=== PATIENT | female | born 1985 | race American Indian/Alaskan Native ===

== ENCOUNTER 2021-01-07 13:41 | Emergency (ER) | payer SELFPAY ==
[2021-01-07] MEDS ORDERED: ONDANSETRON 4 MG/2 ML INJ IV ONE (14:32)
[2021-01-07] MEDS ORDERED: SODIUM CHLORIDE 0.9% 1000 ML 1,000 ML IV ONE ×2 (14:32→16:56)
[2021-01-07] MEDS ORDERED: FAMOTIDINE 20 MG/2 ML INJ IV ONE (14:32)
--- NOTE | 2021-01-07 14:49 | Emergency Department Report ---
ED General Adult HPI - General Chief complaint: Nausea/Vomiting/Diarrhea Stated complaint: VOMITING Time Seen by Provider: 01/07/21 13:54 Source: patient Mode of arrival: Ambulatory Limitations: No Limitations - History of Present Illness Initial comments: 35-year-old -[place] female patient presents with complaints of nausea, vomiting, and cough x2 days. She also reports some body aches and chills without fever. No chest pain per patient or hematemesis/coffee-ground emesis, diarrhea, melena, or hematochezia. She reports she vomits only with food intake. No history of abdominal surgeries per patient or loss of taste or smell. She has not received the COVID-19 vaccine or recently been tested. Past medical history includes hypertension - Related Data Previous Rx's Medication Instructions Recorded Last Taken Type Famotidine [Pepcid] 20 mg PO BID 5 Days #10 tablet 01/07/21 Unknown Rx Ondansetron [Zofran Odt] 4 mg PO Q8HR PRN #15 tab.rapdis 01/07/21 Unknown Rx Allergies Allergy/AdvReac Type Severity Reaction Status Date / Time No Known Allergies Allergy Verified 01/07/21 13:48 ED Review of Systems ROS: Stated complaint: VOMITING Other details as noted in HPI Constitutional: chills, malaise, weakness. denies: diaphoresis, fever ENT: denies: throat pain Respiratory: cough. denies: shortness of breath Cardiovascular: denies: chest pain Gastrointestinal: nausea, vomiting. denies: abdominal pain, diarrhea, constipation, hematemesis, melena, hematochezia Genitourinary: denies: urgency, frequency, hematuria Skin: denies: rash, lesions, change in color Neurological: denies: headache Hematological/Lymphatic: denies: swollen glands ED Past Medical Hx - Surgical History Additional Surgical History: tubal ligation - Social History Smoking Status: Current Some Day Smoker Substance Use Type: None - Medications Home Medications: Home Medications Medication Instructions Recorded Confirmed Last Taken Type Famotidine [Pepcid] 20 mg PO BID 5 Days #10 tablet 01/07/21 Unknown Rx Ondansetron [Zofran Odt] 4 mg PO Q8HR PRN #15 tab.rapdis 01/07/21 Unknown Rx ED Physical Exam - General Limitations: No Limitations General appearance: alert, in no apparent distress - Head Head exam: Present: atraumatic, normocephalic - Eye Eye exam: Present: normal appearance. Absent: scleral icterus - Neck Neck exam: Present: normal inspection - Respiratory Respiratory exam: Present: normal lung sounds bilaterally. Absent: respiratory distress - Cardiovascular Cardiovascular Exam: Present: regular rate, normal rhythm - GI/Abdominal GI/Abdominal exam: Present: soft, normal bowel sounds. Absent: distended, tenderness, guarding, rebound, rigid - Neurological Exam Neurological exam: Present: alert, oriented X3 - Psychiatric Psychiatric exam: Present: normal affect, normal mood - Skin Skin exam: Present: warm, dry, intact, normal color. Absent: rash ED Course Vital Signs 01/07/21 01/07/21 01/07/21 13:48 13:54 15:03 Temperature 99.4 F 98.0 F 98.0 F Pulse Rate 85 77 81 Respiratory 18 14 14 Rate Blood Pressure 121/74 Blood Pressure 154/106 131/75 [Right] O2 Sat by Pulse 96 99 98 Oximetry ED Medical Decision Making - Lab Data Result diagrams: 01/07/21 14:54 01/07/21 14:54 - Radiology Data Radiology results: report reviewed CHEST 2 VIEWS INDICATION / CLINICAL INFORMATION: Cough. COMPARISON: None available. FINDINGS: SUPPORT DEVICES: None. HEART / MEDIASTINUM: No significant abnormality. LUNGS / PLEURA: No significant pulmonary or pleural abnormality. No pneumothorax. ADDITIONAL FINDINGS: No significant additional findings. IMPRESSION: 1. No acute findings. - Medical Decision Making 35-year-old -[place] female patient presents with complaints of nausea, vomiting, and cough x2 days. She also reports some body aches and chills without fever. No chest pain per patient or hematemesis/coffee-ground emesis, diarrhea, melena, or hematochezia. She reports she vomits only with food intake. No history of abdominal surgeries per patient or loss of taste or s latrell. She has not received the COVID-19 vaccine or recently been tested. Past medical history includes hypertension White count elevated at 14. No TTP of the abdomen on exam. Anion gap noted to be 27 on CMP. Patient given 2 L of normal saline. Chest x-ray is normal. Patient is tolerating juice and water p.o. without any vomiting observed here in the ED. Her vitals remain within normal limits and she is well-appearing. Patient is stable for discharge home. Recommend patient receives outpatient COVID-19 testing. Symptomatic treatment for home recommended along with vitamin C and zinc. Discussed in great detail with patient signs and symptoms that should prompt immediate return to the ED, she verbalizes understanding. Critical care attestation.: If time is entered above; I have spent that time in minutes in the direct care of this critically ill patient, excluding procedure time. ED Disposition Clinical Impression: Nausea & vomiting, Cough Disposition: HOME / SELF CARE / HOMELESS Is pt being admited?: No Condition: Stable Instructions: Cough, Adult, [id number], Nausea and Vomiting, Adult, Prevent the Spread of COVID-19 if You Are Sick - CDC, COVID-19 Prescriptions: Famotidine [Pepcid] 20 mg PO BID 5 Days #10 tablet Ondansetron [Zofran Odt] 4 mg PO Q8HR PRN #15 tab.rapdis PRN Reason: Nausea Referrals: [facility] [Provider Group] - 3-5 Days Forms: Work/School Release Form(ED)
[2021-01-07 15:00] LABS: Bilirubin,Urine SM (Negative); Blood,Urine NEG (Negative); Color,Urine Yellow (Yellow); Mucus,Urine 3+ /HPF
[2021-01-07 15:04] LABS: Ictotest,Urine Negative (Negative)
[2021-01-07 15:05] VITALS: BP 131/75
[2021-01-07 15:08] LABS: Basophils # (Auto) 0.1 K/mm3 (0.0-0.1); Basophils % (Auto) 0.8 % (0.0-1.8); Eosinophils % (Auto) 0.1 % (0.0-4.3); Hematocrit 41.9 % (30.3-42.9); Hemoglobin 13.8 gm/dl (10.1-14.3); Lymphocytes # (Auto) 1.6 K/mm3 (1.2-5.4); Lymphocytes % (Auto) 10.6 % (13.4-35.0); Mean Corpuscular HGB Conc 33 % (30-34); Mean Corpuscular Volume 107 fl (79-97); Monocytes # (Auto) 0.7 K/mm3 (0.0-0.8); Platelet Count 297 K/mm3 (140-440); Red Blood Count 3.92 M/mm3 (3.65-5.03); Red Cell Distribution Width 13.7 % (13.2-15.2)
[2021-01-07 15:31] LABS: Alanine Aminotransferase 61 units/L (7-56); Albumin 4.9 g/dL (3.9-5); Blood Urea Nitrogen 9 mg/dL (7-17); Hemolysis Index 60
[2021-01-07 15:43] LABS: BUN/Creatinine Ratio 13
--- NOTE | 2021-01-07 16:10 | XRay Report ---
CHEST 2 VIEWS INDICATION / CLINICAL INFORMATION: Cough. COMPARISON: None available. FINDINGS: SUPPORT DEVICES: None. HEART / MEDIASTINUM: No significant abnormality. LUNGS / PLEURA: No significant pulmonary or pleural abnormality. No pneumothorax. ADDITIONAL FINDINGS: No significant additional findings. IMPRESSION: 1. No acute findings. Signer Name: Kai Tabor MD Signed: 01/07/2021 4:05 PM Workstation Name: [id number]
== END 2021-01-07 18:00 | disposition home or self-care (01) ==
LOC: ED 13:41
DX: R11.2 Nausea with vomiting, unspecified (principal); R05.9 Cough, unspecified; F17.200 Nicotine dependence, unspecified, uncomplicated
CPT/HCPCS: 36415; 71046; 80053; 81001; 83690; 84703; 85025; 96361; 96374; 96375; 99284; J2405; J7030

== ENCOUNTER 2021-01-08 10:57 | Emergency (ER) | payer SELFPAY ==
[2021-01-08 11:11] VITALS: BP 138/100
[2021-01-08] MEDS ORDERED: ONDANSETRON 4 MG ODT TAB PO ONE (11:38)
--- NOTE | 2021-01-08 11:38 | Emergency Department Report ---
ED N/V/D HPI - General Chief complaint: Nausea/Vomiting/Diarrhea Stated complaint: vomiting Time Seen by Provider: 01/08/21 11:11 Source: patient Mode of arrival: Ambulatory Limitations: No Limitations - History of Present Illness Initial comments: Chief complaint: "I keep vomiting." HPI: This is a 35-year-old female who presents with nausea vomiting. She has history of hypertension. She was evaluated yesterday for nausea vomiting. She was unable to afford Zofran. She has continued vomiting. On Wednesday night she ate [employer] sandwich. Wednesday morning she began to have nausea vomiting. She denies abdominal pain. Denies diarrhea. She denies fever she denies headache she denies cough. She has history of tubal ligation. Last menstrual period within 1 month. I reviewed electronic record. On yesterday. Patient reported cough. Chest radiograph unremarkable. Patient received 2 L normal saline yesterday. She was tolerating juice and water without vomiting in the emergency department. Covid suspected at that time. MD complaint: nausea, vomiting -: Gradual, days(s) (2 days ago Wednesday) Description of Vomiting: food contents Associated Abdominal Pain: No Radiation: none Severity: mild - Related Data Previous Rx's Medication Instructions Recorded Last Taken Type Famotidine [Pepcid] 20 mg PO BID 5 Days #10 tablet 01/07/21 Unknown Rx Ondansetron [Zofran Odt] 4 mg PO Q8HR PRN #15 tab.rapdis 01/07/21 Unknown Rx Promethazine [Phenergan] 25 mg PO Q6HR PRN #10 tab 01/08/21 Unknown Rx Allergies Allergy/AdvReac Type Severity Reaction Status Date / Time No Known Allergies Allergy Verified 01/08/21 11:11 ED Review of Systems ROS: Stated complaint: vomiting Other details as noted in HPI Comment: All other systems reviewed and negative Constitutional: denies: chills, fever, malaise Respiratory: denies: shortness of breath Cardiovascular: denies: chest pain Gastrointestinal: nausea, vomiting. denies: abdominal pain, diarrhea ED Past Medical Hx - Past Medical History Previous Medical History?: Yes Hx Hypertension: Yes - Surgical History Past Surgical History?: Yes Additional Surgical History: tubal ligation - Social History Smoking Status: Current Some Day Smoker Substance Use Type: Alcohol - Medications Home Medications: Home Medications Medication Instructions Recorded Confirmed Last Taken Type Famotidine [Pepcid] 20 mg PO BID 5 Days #10 tablet 01/07/21 Unknown Rx Ondansetron [Zofran Odt] 4 mg PO Q8HR PRN #15 tab.rapdis 01/07/21 Unknown Rx Promethazine [Phenergan] 25 mg PO Q6HR PRN #10 tab 01/08/21 Unknown Rx ED Physical Exam - General Limitations: No Limitations General appearance: alert, in no apparent distress, other (Tolerating water appears well) - Head Head exam: Present: atraumatic, normocephalic - Eye Eye exam: Present: normal appearance - ENT ENT exam: Present: mucous membranes moist - Neck Neck exam: Present: normal inspection, full ROM - Respiratory Respiratory exam: Present: normal lung sounds bilaterally. Absent: respiratory distress, wheezes, rales, rhonchi, stridor - Cardiovascular Cardiovascular Exam: Present: regular rate, normal rhythm, normal heart sounds. Absent: systolic murmur, diastolic murmur, rubs, gallop - GI/Abdominal GI/Abdominal exam: Present: soft, normal bowel sounds. Absent: distended, tenderness, guarding - Extremities Exam Extremities exam: Present: normal inspection - Back Exam Back exam: Present: normal inspection - Neurological Exam Neurological exam: Present: alert, oriented X3 - Psychiatric Psychiatric exam: Present: normal affect, normal mood - Skin Skin exam: Present: warm, dry, intact, normal color. Absent: rash ED Course Vital Signs 01/08/21 11:10 Temperature 98.6 F Pulse Rate 73 Respiratory 18 Rate Blood Pressure 138/100 [Left] O2 Sat by Pulse 97 Oximetry ED Medical Decision Making - Medical Decision Making Clinical impression persistent vomiting due to food poisoning versus viral syndrome. I have prescribed promethazine. Patient tolerated p.o. in the emergency department without treatment. Patient received Zofran ODT prior to discharge. Refer to outpatient medicine physician. Critical care attestation.: If time is entered above; I have spent that time in minutes in the direct care of this critically ill patient, excluding procedure time. ED Disposition Clinical Impression: Food poisoning Disposition: HOME / SELF CARE / HOMELESS Is pt being admited?: No Does the pt Need Aspirin: No Condition: Stable Instructions: Food Poisoning Prescriptions: Promethazine [Phenergan] 25 mg PO Q6HR PRN #10 tab PRN Reason: Nausea Referrals: LYUDMILA CORADO MD [Staff Physician] - 3-5 Days
== END 2021-01-08 11:52 | disposition home or self-care (01) ==
LOC: ED 10:57
DX: A05.9 Bacterial foodborne intoxication, unspecified (principal); I10 Essential (primary) hypertension; Z98.890 Other specified postprocedural states; F17.200 Nicotine dependence, unspecified, uncomplicated
CPT/HCPCS: 99282; Q0162

== ENCOUNTER 2021-03-29 10:45 | Emergency (ER) | payer SELFPAY ==
[2021-03-29] MEDS ORDERED: ONDANSETRON 4 MG/2 ML INJ IV ONE (11:14)
[2021-03-29] MEDS ORDERED: SODIUM CHLORIDE 0.9% 1000 ML 1,000 ML IV ONE (11:14)
[2021-03-29] MEDS ORDERED: HYOSCYAMINE SUBL 0.125 MG TAB SL ONE (11:15)
--- NOTE | 2021-03-29 11:15 | Emergency Department Report ---
ED N/V/D HPI - General Chief complaint: Nausea/Vomiting/Diarrhea Stated complaint: VOMITING PUI?: No Time Seen by Provider: 03/29/21 11:07 Source: patient Mode of arrival: Ambulatory Limitations: No Limitations - History of Present Illness Initial comments: 35-year-old female with a past medical history of hypertension presents to the ER today with complaints of nausea and vomiting. Patient states that her symptoms started around 8 PM last night. Patient reports multiple episodes of nausea and vomiting. She states emesis has been mainly liquid and bile. She denies any hematemesis or coffee-ground emesis. She reports abdominal discomfort mainly when she vomits. She denies any diarrhea. She denies any dysuria, hematuria, urinary urgency or any abnormal vaginal symptoms. She denies any fever or chills. She states that she has had last month. She states she came here and then also went to [facility]. She states that they were not able to give her a clear diagnosis but instead give her some antiemetics and discharged home. Patient states that she still has antiemetics at home, she thinks that is Phenergan but she states that she has been able to tolerate it with the nausea and vomiting that she has been having since last night. She states that her last menstrual cycle was last week. She denies any ETOH abuse or illicit drug use. MD complaint: nausea, vomiting -: Last night - Related Data Previous Rx's Medication Instructions Recorded Last Taken Type Famotidine [Pepcid] 20 mg PO BID 5 Days #10 tablet 01/07/21 Unknown Rx Promethazine [Phenergan] 25 mg PO Q6HR PRN #10 tab 01/08/21 Unknown Rx Ondansetron [Zofran ODT TAB] 4 mg PO Q8HR PRN #15 tab.rapdis 03/29/21 Unknown Rx Promethazine [Phenergan] 25 mg SD Q6HR PRN #20 supp.rect 03/29/21 Unknown Rx cephALEXin [Keflex] 500 mg PO Q6HR #40 capsule 03/29/21 Unknown Rx Allergies Allergy/AdvReac Type Severity Reaction Status Date / Time No Known Allergies Allergy Verified 03/29/21 13:02 ED Review of Systems ROS: Stated complaint: VOMITING Other details as noted in HPI Comment: All other systems reviewed and negative Constitutional: denies: chills, fever Eyes: denies: eye pain, eye discharge, vision change ENT: denies: ear pain, throat pain Respiratory: denies: cough, shortness of breath, SOB with exertion, SOB at rest, wheezing Endocrine: no symptoms reported Gastrointestinal: abdominal pain, nausea, vomiting. denies: diarrhea, constipation, hematemesis, hematochezia Genitourinary: denies: urgency, dysuria, frequency, hematuria, discharge, abnormal menses, dyspareunia Musculoskeletal: denies: back pain, joint swelling, arthralgia, myalgia Skin: denies: rash, lesions, change in color, change in hair/nails, pruritus Neurological: denies: headache, weakness, numbness, paresthesias, confusion, abnormal gait, vertigo Psychiatric: denies: anxiety, depression, auditory hallucinations, visual hallucinations, homicidal thoughts, suicidal thoughts Hematological/Lymphatic: denies: easy bleeding, easy bruising, swollen glands ED Past Medical Hx - Past Medical History Hx Hypertension: Yes - Surgical History Additional Surgical History: tubal ligation - Social History Smoking Status: Current Some Day Smoker Substance Use Type: Alcohol - Medications Home Medications: Home Medications Medication Instructions Recorded Confirmed Last Taken Type Famotidine [Pepcid] 20 mg PO BID 5 Days #10 tablet 01/07/21 03/29/21 Unknown Rx Promethazine [Phenergan] 25 mg PO Q6HR PRN #10 tab 01/08/21 03/29/21 Unknown Rx Ondansetron [Zofran ODT TAB] 4 mg PO Q8HR PRN #15 tab.rapdis 03/29/21 Unknown Rx Promethazine [Phenergan] 25 mg SD Q6HR PRN #20 supp.rect 03/29/21 Unknown Rx cephALEXin [Keflex] 500 mg PO Q6HR #40 capsule 03/29/21 Unknown Rx ED Physical Exam - General Limitations: No Limitations General appearance: alert, in no apparent distress - Head Head exam: Present: atraumatic, normocephalic, normal inspection - Eye Eye exam: Present: normal appearance, PERRL, EOMI Pupils: Present: normal accommodation - ENT ENT exam: Present: mucous membranes dry - Neck Neck exam: Present: normal inspection, full ROM. Absent: meningismus - Respiratory Respiratory exam: Present: normal lung sounds bilaterally. Absent: respiratory distress, wheezes, rales, rhonchi - Cardiovascular Cardiovascular Exam: Present: regular rate, normal rhythm, normal heart sounds - GI/Abdominal GI/Abdominal exam: Present: soft. Absent: distended, tenderness, guarding - Neurological Exam Neurological exam: Present: alert, oriented X3, CN II-XII intact, normal gait - Psychiatric Psychiatric exam: Present: normal affect, normal mood - Skin Skin exam: Present: intact ED Course Vital Signs 03/29/21 03/29/21 03/29/21 11:16 13:00 14:10 Temperature 98.1 F 98.5 F 98.3 F Pulse Rate 67 77 63 Respiratory 20 18 16 Rate Blood Pressure 169/99 122/79 165/100 [Right] O2 Sat by Pulse 97 99 97 Oximetry ED Medical Decision Making - Lab Data Result diagrams: 03/29/21 11:21 03/29/21 11:21 - Medical Decision Making 1353; patient currently resting comfortably. She received IV fluids and IV Zofran here in the ER today. She has not had any vomiting during stay. Currently nontoxic or ill-appearing. She has a soft nontender abdomen. No CVA tenderness. Reviewed patient past visits, and she has been here a few times for nausea and vomiting. All labs reviewed --today her work-up concerning for UTI. White count is normal. Renal functions are within normal limits as well as LFTs and electrolytes. Patient is afebrile and remaining vital signs are stable. At this time there is no indication for additional testing or admission to the hospital. Discussed all results with patient. Patient will be started on Keflex as well as Phenergan suppositories and Zofran for her symptoms. She also given referral to GI specialist, and primary child care centre director. Encouraged her to drink lots of fluids. Patient expressed understanding of all instructions and agree with plan. Patient stable at time of discharge. - Differential Diagnosis Electrolyte abnormality, dehydration, gastroenteritis, UTI Critical care attestation.: If time is entered above; I have spent that time in minutes in the direct care of this critically ill patient, excluding procedure time. ED Disposition Clinical Impression: UTI (urinary tract infection), Nausea and vomiting Disposition: 01 HOME / SELF CARE / HOMELESS Is pt being admited?: No Does the pt Need Aspirin: No Condition: Stable Instructions: Urinary Tract Infection, Adult, [id number], Nausea and Vomiting, Adult Additional Instructions: I recommend that you do the Zofran ODT, and the Phenergan suppositories as needed for nausea and vomiting. Your work-up today shows that you have a UTI and is very important that you get the antibiotic filled and start taking it and take it to completion. Recommend doing a bland diet for the next 12 to 24 hours and advance as tolerated. Drink lots of water. Follow-up with your primary care doctor as well as the GI specialist listed in your discharge instructions next week. Return to the ER if your symptoms worsens or changes in any way Prescriptions: cephALEXin [Keflex] 500 mg PO Q6HR #40 capsule Promethazine [Phenergan] 25 mg SD Q6HR PRN #20 supp.rect PRN Reason: Nausea And Vomiting Ondansetron [Zofran ODT TAB] 4 mg PO Q8HR PRN #15 tab.rapdis PRN Reason: Nausea Referrals: DEEDEE AMADOR MD [Staff Physician] - 3-5 Days [facility] [Provider Group] - 3-5 Days Forms: Work/School Release Form(ED) Time of Disposition: 13:45
[2021-03-29 11:39] LABS: Hematocrit 41.3 % (30.3-42.9); Hemoglobin 13.7 gm/dl (10.1-14.3); Mean Corpuscular HGB Conc 33 % (30-34); Mean Corpuscular Volume 107 fl (79-97); Platelet Count 241 K/mm3 (140-440); Red Blood Count 3.86 M/mm3 (3.65-5.03); Red Cell Distribution Width 14.6 % (13.2-15.2)
[2021-03-29 11:52] LABS: Bacteria,Urine 1+ /HPF (Negative); Bilirubin,Urine NEG (Negative); Blood,Urine NEG (Negative); Color,Urine Amber (Yellow); Mucus,Urine 3+ /HPF; Urobilinogen,Urine < 2.0 mg/dL (<2.0)
[2021-03-29 11:55] LABS: HCG Qualitative,Urine Negative (Negative)
[2021-03-29 12:07] LABS: Alanine Aminotransferase 36 units/L (7-56); Albumin 4.7 g/dL (3.9-5); BUN/Creatinine Ratio 13; Blood Urea Nitrogen 8 mg/dL (7-17); Calcium 9.8 mg/dL (8.4-10.2); Hemolysis Index 4
[2021-03-29 12:31] LABS: Basophils % (Manual) 0 % (0.0-1.8); Eosinophils % (Manual) 0 % (0.0-4.3); Total Cells Counted 100
[2021-03-29 12:32] LABS: Platelet Estimate Consistent w Auto; RBC Morphology Normal
[2021-03-29] MEDS ORDERED: cefTRIAXone/NS 1 GM/50 ML 1 GM/50 ML BAG IV ONE (12:36)
[2021-03-29 14:10] VITALS: BP 165/100
== END 2021-03-29 14:15 | disposition home or self-care (01) ==
LOC: ED 10:45
DX: N39.0 Urinary tract infection, site not specified (principal); R11.2 Nausea with vomiting, unspecified; F17.200 Nicotine dependence, unspecified, uncomplicated; I10 Essential (primary) hypertension
CPT/HCPCS: 36415; 80053; 81001; 81025; 83690; 85007; 85025; 87076; 87086; 87186; 96365; 96375; 99283; J0696; J2405; J7030; Q0162